=== PATIENT | female | born 1950 | race Caucasian/White ===

== ENCOUNTER 2017-02-02 08:08 | Inpatient (IN) | payer OTHER ==
[~2017-02-02] VITALS: Ht 154.9 cm; Wt 66.4 kg
[2017-02-02] VITALS (16 sets, daily range): BP systolic 108–142; BP diastolic 46–72
--- NOTE | ~2017-02-02 | HC ---
[facility] [place] [address] CONSULTATION Name: SATHISH LIMA Room #: 203-P [facility] IN M.R.#: [id number] Admission: 02/02/17 Attend Phys: Kristen Granado Discharge: 02/04/17 Date of : 46 Report #: [id number] THIS REPORT FOR: //name// CC: FAM unknown Kristen Granado DATE OF SERVICE: 02/02/2017 HISTORY OF PRESENT ILLNESS: This is a 66-year-old female patient who is difficult to evaluate. The patient's scjqxhwy-cw-luc is here and she indicates that this patient works and she worked yesterday. This morning she tried to call his son and could not express herself and they brought her here. The only thing she says is I have headache. She said, she had another headache about 4-5 years ago, but she usually does not get migraine headache. She has a seizure disorder. She does not know how long it is going on. She has seen a neurologist. She does not know who the neurologist is. Sbyvieuj-iv-paz also does not know that. Her seizures are not very frequent and in fact she has not had one for long time. It does not look like she has any prior history of glaucoma. This patient gives a history that the last seizure was about 6-7 years ago. She had an episode at that time where her Dilantin level was low, but she does not know what hospital she was in. REVIEW OF SYSTEMS: Indicate that she is on antidepressants, but apparently depression is not a very big problem, she has not had any. Review of systems as described above. PAST MEDICAL HISTORY: Negative for any early age stroke. PAST MEDICAL HISTORY: Seizure. FAMILY HISTORY: Negative for early age stroke. SOCIAL HISTORY: Iazjzfib-fl-fhy says she does not drink any alcohol or smoke. PHYSICAL EXAMINATION: The patient's examinations indicate she is very drowsy when I wake her up. She keeps saying just a few words that her head hurts. She does not say anything else and according to the nurses this is all she has done. She does not follow simple commands to carry out any examination. I do not think there is any meningeal sign in this patient. She is not markedly obtunded. I cannot tell where the pain is. The exam I can carry out her blood pressure is 138/62, respiration is 23, pulse is 77. Her Dilantin level is virtually nonexistent at 2.5. IMPRESSION: Very confusing history. This patient needs urgent workup to determine the etiology of the patient's symptom. We need an MRI of the brain [address] [address] CONSULTATION Name: SATHISH LIMA Room #: 203-P [facility] IN M.R.#: [id number] Admission: 02/02/17 Attend Phys: Kristen Granado Discharge: 02/04/17 Date of : 46 Report #: [id number] and MRA of the brain and MRV to see if there is any etiology there. That is already ordered as stat. We will get an EEG done to see if there is any evidence for nonconvulsive status, but the history is not typical for that. It does not look like it is subarachnoid hemorrhage, but I cannot fully exclude that either. RECOMMENDATIONS: I had multiple discussions with the Emergency Room physician and I talked to the patient's nddnaufm-yq-xnd and the patient the best I can. I do not think the patient understands things. The plan is to get a stat MRI and MRA done and an EEG done. If it is negative, then proceed with the spinal tap. This patient woke up with this symptom around 7:00, the best we can tell. Therefore, she is not a candidate for any intervention if this is stroke. I do not believe, it is glaucoma and I do not see any changes for that, but if the other workup is negative Ophthalmology need to be considered. We will also like to get a sed rate in this patient some time. More than 50 minutes of cyyk-tw-hpus time was spent taking care of this patient today and majority of that time was spent counseling this patient's family and coordinating her care. Thank you very much for this referral. <ELECTRONICALLY SIGNED> By: Austin Westbrook MD 02/07/17 0943 1131 0048 Austin Westbrook MD /nt
--- NOTE | ~2017-02-02 | EKG ---
[address] [place] [address] ELECTROCARDIOGRAM REPORT Name: KELLI LIMAINN Room #: 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
--- NOTE | ~2017-02-02 | EEG ---
[facility] [place] [address] [place] [address] ELECTROENCEPHALOGRAM Name: SATHISH LIMA Room #: 203-P [facility] IN M.R.#: [id number] Admission: 02/02/17 Attend Phys: Kristen Givens Discharge: 02/04/17 Date of : 46 Report #: [id number] THIS REPORT FOR: //name// CC: FAM unknown Kristen Granado DATE OF SERVICE: 02/04/2017 The patient's EEG was done for comparing with the last EEG. EEG was done by placing the electrodes by standard 10/20 system of electrode placement. Both referential and sequential montages were used for recording. Background activity in this patient's EEG is about 9 Hz and 30 microvolt. It is a symmetrical activity. Photic stimulation is unremarkable. The patient appeared to be drowsy and that is associated with bilateral slowing and vertex sharp waves. Throughout the record, no active epileptiform activity was noticed. IMPRESSION: Left-sided slowing noticed in the last EEG appeared to have resolved and the EEG appeared unremarkable. Thank you very much for this referral. <ELECTRONICALLY SIGNED> By: Austin Westbrook MD 02/07/17 0944 1019 1108 Austin Westbrook MD /nt
--- NOTE | ~2017-02-02 | EEG ---
[facility] [place] [place] [address] ELECTROENCEPHALOGRAM Name: SATHISH LIMA Room #: 203-P [facility] IN M.R.#: [id number] Admission: 02/02/17 Attend Phys: Kristen Givens Discharge: 02/04/17 Date of : 46 Report #: [id number] THIS REPORT FOR: //name// CC: FAM unknown Kristen Granado DATE OF SERVICE: 02/02/2017 This patient is being evaluated for speech difficulty. EEG was done by placing the electrodes by standard 10/20 system of electrode placement. Both referential and sequential montages were used for recording. Background activity on the right side appeared to be about 9-10 Hz and 30 microvolt. It is severely suppressed on the left side. On the left side, I do not see any epileptiform activity, but it is markedly suppressed. Photic stimulation was unremarkable. IMPRESSION: This is an abnormal EEG because it is markedly suppressed on the left side. I got further history from the son. He indicated that this patient had seizure virtually all her adult life. Her seizures are infrequent. She also has infrequent headaches. The last time she was here with similar symptoms, they gave her Dilantin IV, and she became better. Her Dilantin level is low, but she thinks she was taking her seizure medications appropriately. She usually sees Dr. Nicholson, who is a neurologist at [facility]. She saw him recently, and the son does not know what the Dilantin level was, but he was not told anything, and he assumed it was therapeutic. I had a long talk with this patient. This patient has severely suppressed EEG on the left side and the MRI is normal. I do not see any subarachnoid hemorrhage or an aneurysm. She is running low grade temperature at 99.6, and her troponin level is borderline. I discussed with the patient and the son that I cannot rule out an infection or even a subarachnoid hemorrhage in this patient fully. The way to do that is by doing a spinal tap. She is according to the son and spinal tap does carry some risk including paralysis. He initially wanted to do only Dilantin and see how she does, but subsequently wanted to proceed with the spinal tap. I discussed indication, potential complication and alternatives of spinal tap with the son in front of the patient and that does include paralysis of the lower extremities, which can be permanent. They understood all those, and they want to proceed with spinal tap. We will try to give the patient Dilantin and try to arrange the spinal tap. I discussed all the options with the family in great detail in this regard. [address] [address] ELECTROENCEPHALOGRAM Name: SATHISH LIMA Room #: 203-P [facility] IN M.R.#: [id number] Admission: 02/02/17 Attend Phys: Kristen Givens Discharge: 02/04/17 Date of : 46 Report #: [id number] Thank you very much for this referral, and we will continue to follow this patient with you. <ELECTRONICALLY SIGNED> By: Austin Westbrook MD 02/07/17 0944 1450 1512 Austin Westbrook MD /nt
[~2017-02-02 08:08] MED LIST: ADVAIRDISKUS; ALPRAZOLAM2 MG PO; AMBIEN 10 MG TA10 MG PO; CARAFATE1 GM/10 ML PO; DILANTIN50 MG; FOSAMAX 70 MG T70 M1 PO; LISINOPRIL10 MG PO; MUCINEX600 MG; NORTRIPTYLINE H50 M3 PO; OMEPRAZOLE20 M2 PO; PAROXETINE HCL20 MG PO; PREDNISONE 10 M10 MG PO; VICODIN 5-5001 EACH PO
[2017-02-02] MEDS ORDERED: PAXIL10 MG PO (08:19)
[2017-02-02] MEDS ORDERED: TRAZODONE HCL50 MG PO (08:19)
[2017-02-02] MEDS ORDERED: LEVAQUIN 250 M250 MG PO (08:20)
[2017-02-02] MEDS ORDERED: VIMPAT100 MG PO (08:20)
[2017-02-02 08:46] LABS: ABSOLUTE NEUTROPHILS 7.4 thou/uL (1.4-8.2); BASOPHILS 0.3 % (0.0-2.0); EOSINOPHILS 2.3 % (0.0-3.0); LYMPHOCYTES 18.1 % (24.0-44.0); MANUAL DIFF NO; MCH 30.5 pg (26.0-34.0); MCHC 34.3 g/dL (28.0-37.0); MONOCYTES 10.6 % (1.0-8.0); PLATELET COUNT 260 thou/uL (150-400); POLYS 68.7 % (36.0-66.0); RBC 4.61 mil/uL (4.20-5.00); RDW 13.2 % (10.5-14.5); WBC 10.8 thou/uL (4.0-11.0)
[2017-02-02 08:50] LABS: CALCIUM 8.8 mg/dL (8.5-10.1); CREATININE 0.9 mg/dL (0.6-1.0); POTASSIUM 3.6 mmol/L (3.5-5.1)
[2017-02-02 08:58] LABS: DILANTIN 2.5 ug/mL (10.0-20.0); TROPONIN-I 0.06 ng/mL (<0.06)
[2017-02-02 09:08] LABS: URINE BILIRUBIN NEGATIVE (Negative); URINE BLOOD NEGATIVE (Negative); URINE COLOR YELLOW; URINE GLUCOSE-RANDOM* NEGATIVE (Negative); URINE KETONES NEGATIVE (Negative); URINE LEUKOCYTES-REFLEX NEGATIVE (Negative); URINE PROTEIN (DIPSTICK) TRACE (Negative); URINE UROBILINOGEN 0.2 E.U./dl (0.2-1.0)
[2017-02-02 09:21] LABS: AMP/METHAMP Negative (Negative); BARBITURATES Negative (Negative); BENZODIAZEPINES POSITIVE (Negative); COCAINE Negative (Negative); METHADONE Negative (Negative); OPIATES Negative (Negative); PCP Negative (Negative)
[2017-02-02 10:10] LABS: APTT 29.9 Seconds (24.5-32.8); PROTIME 9.9 Seconds (9.3-11.4)
[2017-02-02] MEDS ORDERED: MUCINEX600 MG PO (10:19)
[2017-02-02] MEDS ORDERED: CLARITIN10 MG PO (10:19)
[2017-02-02] MEDS ORDERED: UNICOMPLEX M TA1 TA1 PO (10:19)
[2017-02-02 14:59] LABS: ALBUMIN 3.8 g/dL (3.4-5.0); CALCIUM 8.8 mg/dL (8.5-10.1); CREATININE 0.9 mg/dL (0.6-1.0); POTASSIUM 3.7 mmol/L (3.5-5.1); TOTAL BILIRUBIN 0.6 mg/dL (<0.1-1.0); TOTAL PROTEIN 6.5 g/dL (6.4-8.2)
[2017-02-02 17:12] LABS: NUMBER OF TUBES 4
[2017-02-02 17:13] LABS: CSF CLARITY CLEAR; CSF COLOR COLORLESS; VOLUME 8.5 ml
[2017-02-02 17:17] LABS: CSF GLUCOSE 59 mg/dL (40-70); CSF PROTEIN 63 mg/dL (15-45)
[2017-02-02 17:43] LABS: CSF WBC 8 /mm3 (0-10); MANUAL DIFF NO
[2017-02-02] MEDS ORDERED: LEVAQUIN 500 M500 M2 PO (18:00)
[2017-02-02] MEDS ORDERED: SINGULAIR 10 MG10 M1 PO (18:01)
[2017-02-02] MEDS ORDERED: FOSAMAX 70 MG T70 MG PO (18:02)
[2017-02-02] MEDS ORDERED: ASMANEX110 MC1 IH (18:03)
[2017-02-02] MEDS ORDERED: BREO ELLIPTA 11 EACH (18:03)
[2017-02-02] MEDS ORDERED: VIMPAT150 MG PO (18:52)
[2017-02-03 03:35] VITALS: BP 137/64
[2017-02-03 04:44] LABS: ALBUMIN 3.1 g/dL (3.4-5.0); CALCIUM 8.3 mg/dL (8.5-10.1); CREATININE 0.9 mg/dL (0.6-1.0); POTASSIUM 4.1 mmol/L (3.5-5.1); TOTAL BILIRUBIN 0.7 mg/dL (<0.1-1.0); TOTAL PROTEIN 5.9 g/dL (6.4-8.2)
[2017-02-03 05:12] LABS: TSH 0.665 uIU/mL (0.358-3.740)
[2017-02-03 11:42] VITALS: BP 147/67
[2017-02-03 15:09] VITALS: BP 127/69
[2017-02-03] MEDS ORDERED: PROMETHAZINE/C118 ML PO (18:23)
[2017-02-03] MEDS ORDERED: MAGOX 400400 MG PO (18:25)
[2017-02-03] MEDS ORDERED: TRAZODONE HCL50 MG PO (18:25)
[2017-02-03] MEDS ORDERED: TYLENOL325 MG PO (18:26)
[2017-02-03] MEDS ORDERED: POTASSIUM GLUCONATE (18:28)
[2017-02-03] MEDS ORDERED: CALCIUM 600 +1 EAC1 PO (18:29)
[2017-02-03 19:37] VITALS: BP 129/59
[2017-02-04 05:24] VITALS: BP 122/71
[2017-02-04 07:15] VITALS: BP 136/71
[2017-02-04] MEDS ORDERED: KEFLEX500 M1 PO (09:49)
[2017-02-04 11:02] VITALS: BP 140/72
[2017-02-04 15:06] VITALS: BP 140/72
== END 2017-02-04 18:08 | disposition home health service (06) | DRG 100 ==
LOC: ER 08:08 → EROBS 10:23 → 2N 10:23
PROVIDERS: Emergency Medicine; Psychiatry & Neurology Neuromuscular Medicine
PROC: 009U3ZX Drainage of Spinal Canal, Percutaneous Approach, Diagnostic (ICD-10-PCS; principal; 2017-02-02)
PROC: B01B1ZZ Fluoroscopy of Spinal Cord using Low Osmolar Contrast (ICD-10-PCS; principal; 2017-02-02)
DX: G40.909 Epilepsy, unspecified, not intractable, without status epilepticus (principal); G93.40 Encephalopathy, unspecified; G43.409 Hemiplegic migraine, not intractable, without status migrainosus; I10 Essential (primary) hypertension; J45.909 Unspecified asthma, uncomplicated; J32.0 Chronic maxillary sinusitis; Z60.2 Problems related to living alone; Z88.6 Allergy status to analgesic agent; Z88.0 Allergy status to penicillin; Z88.8 Allergy status to other drugs, medicaments and biological substances; Z79.899 Other long term (current) drug therapy
CPT/HCPCS: 10081

== ENCOUNTER 2018-08-08 18:03 | Emergency (ER) | payer OTHER ==
[~2018-08-08] VITALS: Ht 157.5 cm; Wt 70.3 kg
[~2018-08-08 18:03] MED LIST changes: +ASMANEX110 MC1 IH; +BREO ELLIPTA 11 EACH; +CALCIUM 600 +1 EAC1 PO; +CLARITIN10 MG PO; +FOSAMAX 70 MG T70 MG PO; +KEFLEX500 M1 PO; +LEVAQUIN 250 M250 MG PO; +LEVAQUIN 500 M500 M2 PO; +MAGOX 400400 MG PO; +MUCINEX600 MG PO; +PAXIL10 MG PO; +POTASSIUM GLUCONATE; +PROMETHAZINE/C118 ML PO; +SINGULAIR 10 MG10 M1 PO; +TRAZODONE HCL50 MG PO; +TYLENOL325 MG PO; +UNICOMPLEX M TA1 TA1 PO; +VIMPAT100 MG PO; +VIMPAT150 MG PO
[2018-08-08 18:55] LABS: ABSOLUTE NEUTROPHILS 5.3 thou/uL (1.4-8.2); BASOPHILS 0.7 % (0.0-2.0); EOSINOPHILS 4.1 % (0.0-3.0); HEMATOCRIT 39.1 % (37.0-47.0); HEMOGLOBIN 13.1 gm/dL (12.0-15.0); LYMPHOCYTES 23.2 % (24.0-44.0); MCH 30.7 pg (26.0-34.0); MCHC 33.6 g/dL (28.0-37.0); MCV 91.3 fL (80.0-100.0); MONOCYTES 8.1 % (1.0-8.0); PLATELET COUNT 266 thou/uL (150-400); POLYS 63.9 % (36.0-66.0); RBC 4.28 mil/uL (4.20-5.00); RDW 13.7 % (10.5-14.5); WBC 8.2 thou/uL (4.0-11.0)
[2018-08-08 18:58] LABS: CALCIUM 8.6 mg/dL (8.5-10.1); CREATININE 1.1 mg/dL (0.6-1.0)
[2018-08-08 19:05] LABS: ALBUMIN 3.4 g/dL (3.4-5.0); MAGNESIUM 2.1 mg/dL (1.8-2.4); TOTAL BILIRUBIN 0.3 mg/dL (<0.1-1.0); TOTAL PROTEIN 6.4 g/dL (6.4-8.2)
[2018-08-08 19:46] LABS: AMP/METHAMP Negative (Negative); BARBITURATES Negative (Negative); BENZODIAZEPINES Negative (Negative); COCAINE Negative (Negative); METHADONE Negative (Negative); OPIATES Negative (Negative); PCP Negative (Negative)
[2018-08-08 21:19] VITALS: BP 141/58
== END 2018-08-08 21:20 | disposition home or self-care (01) ==
LOC: ER 18:03
PROVIDERS: Emergency Medicine
DX: G40.909 Epilepsy, unspecified, not intractable, without status epilepticus (principal); R51 Headache; I10 Essential (primary) hypertension; J45.909 Unspecified asthma, uncomplicated; Z88.0 Allergy status to penicillin; Z88.8 Allergy status to other drugs, medicaments and biological substances

== ENCOUNTER 2018-08-18 08:21 | Inpatient (IN) | payer OTHER ==
[~2018-08-18] VITALS: Ht 144.8 cm; Wt 64.9 kg
--- NOTE | ~2018-08-18 | H ---
[facility] [place] [address] HISTORY AND PHYSICAL Name: SATHISH LIMA Room #: REG BRIAN Jaeger#: [id number] Admission: 08/18/18 ������������������ Attend Phys: Discharge: ������������������ Date of : 46 Report #: [id number] THIS REPORT FOR: //name// CC: Hi Sanz DATE OF SERVICE: 08/18/2018 REASON FOR PRESENTATION: Abdominal pain. HISTORY OF PRESENT ILLNESS: A 67-year-old with past medical history of seizure disorder, asthma and hypertension, recurrent bowel obstruction. She presented with abdominal pain that started last night. This was associated with diffuse nausea and vomiting. She denies any fever or chills. She was doing just fine up until the last night when she started to have those symptoms. She could not tolerate the pain and she presented for further evaluation and management. She has had previous history of endometriosis and adhesions. She has not been able to take her medications because of the above-mentioned symptoms. She presented for further evaluation and management. CT of the abdomen was consistent with small-bowel obstruction for which the patient will be admitted. She denies diarrhea. There are no urinary symptoms in the form of fever, chills, urgency, hesitancy. The pain was localized in the upper abdominal area. No radiation. The pain had been progressing significantly. The patient was evaluated a few months ago for a seizure disorder. She is known to have chronic seizure disorders and had been evaluated by the Neurology in the past. PAST MEDICAL HISTORY: 1. Seizure disorder. 2. Asthma. 3. Hypertension. 4. Osteoporosis. ALLERGIES: PENICILLIN, ASPIRIN, OMEPRAZOLE. MEDICATIONS: 1. Lisinopril. 2. Breo. 3. Phenytoin. 4. Alprazolam. 5. Trazodone. 6. Vimpat. REVIEW OF SYSTEMS: GENERAL: Significant for weakness. CARDIOVASCULAR: No chest pain or palpitation. PULMONARY: No cough or hemoptysis. [facility] [address] [place] [address] HISTORY AND PHYSICAL Name: SATHISH LIMA Room #: REG [facility].#: [id number] Admission: 08/18/18 ������������������ Attend Phys: Discharge: ������������������ Date of : 46 Report #: [id number] GASTROINTESTINAL: As per history of present illness. GENITOURINARY: No frequency, no urgency. MUSCULOSKELETAL: No back pain, no chest pain. SKIN: No rashes or ulcerations. NEUROLOGICAL: No recent seizure activities. FAMILY HISTORY: Significant for diabetes mellitus and hypertension. SOCIAL HISTORY: She denies drug or alcohol abuse. PHYSICAL EXAMINATION: GENERAL: She is alert, oriented, in distress. VITAL SIGNS: Pulse rate is 93, temperature 36.9, blood pressure is 102/70. HEAD AND NECK: No jugular venous distention. CHEST: Decreased air entry bilaterally. CARDIOVASCULAR: No rub detected. ABDOMEN: Diffuse tenderness with hypoactive bowel sounds. LOWER EXTREMITIES: No edema. NEUROLOGICAL: No gross deficit. SKIN: No rashes or ulcerations. LABORATORY VALUES: Reviewed. White blood cell count is 10.4. Chemistry from today revealed a sodium of 135. BUN is 13, creatinine is 0.9. CT of the abdomen revealed a small-bowel obstruction. ASSESSMENT, IMPRESSION AND PLAN: 1. Small bowel obstruction. 2. Seizure disorder. 3. Hypertension. 4. Admission. 5. NPO status. 6. Surgical consultation. 7. NG tube. 8. Switch all of her medications to an intravenous route. 9. Further plans will be implemented after surgical evaluation. ��������������������������������������������� ���������������������������������������� By: ��������������������������������������������� 1526 1545 Yandel Carbone MD /nt
[2018-08-18 08:22] VITALS: BP 102/70
--- NOTE | 2018-08-18 09:34 | NUR ---
DR GUIDRY BEDSIDE FOR EXAM
[2018-08-18 09:46] LABS: ABSOLUTE NEUTROPHILS 7.6 thou/uL (1.4-8.2); BASOPHILS 0.6 % (0.0-2.0); EOSINOPHILS 2.8 % (0.0-3.0); HEMATOCRIT 43.6 % (37.0-47.0); HEMOGLOBIN 14.9 gm/dL (12.0-15.0); LYMPHOCYTES 14.3 % (24.0-44.0); MCH 30.6 pg (26.0-34.0); MCHC 34.2 g/dL (28.0-37.0); MCV 89.6 fL (80.0-100.0); MONOCYTES 9.2 % (1.0-8.0); PLATELET COUNT 305 thou/uL (150-400); POLYS 73.1 % (36.0-66.0); RBC 4.86 mil/uL (4.20-5.00); RDW 13.4 % (10.5-14.5); WBC 10.4 thou/uL (4.0-11.0)
[2018-08-18 09:50] LABS: CALCIUM 9.3 mg/dL (8.5-10.1); CREATININE 0.9 mg/dL (0.6-1.0); POTASSIUM 3.6 mmol/L (3.5-5.1)
[2018-08-18 09:56] LABS: ALBUMIN 3.8 g/dL (3.4-5.0); DIRECT BILIRUBIN 0.1 mg/dL (<0.1-0.3); TOTAL BILIRUBIN 0.6 mg/dL (<0.1-1.0); TOTAL PROTEIN 6.8 g/dL (6.4-8.2)
--- NOTE | 2018-08-18 11:46 | NUR ---
PT. PROVIDED PAIN MED. FOR C/O ABDOMINAL PAIN. WILL REASSESS FOR COMFORT.
--- NOTE | 2018-08-18 14:15 | NUR ---
PT. RETURNS FROM [facility] AFTER CT SCAN. PT. WITH NAUSEA. DR. GUIDRY MADE AWARE
[2018-08-18] MEDS ORDERED: DILANTIN100 MG PO (15:40)
[2018-08-18] MEDS ORDERED: CENTRUM SILVER1 EAC4 PO (15:41)
[2018-08-18] MEDS ORDERED: LISINOPRIL10 MG PO (15:41)
[2018-08-18] MEDS ORDERED: PREDNISONE 10 M10 MG PO (15:41)
[2018-08-18 17:54] VITALS: BP 112/52
[2018-08-18 20:30] VITALS: BP 114/65
[2018-08-19 00:10] VITALS: BP 121/61
[2018-08-19 01:56] LABS: URINE BILIRUBIN NEGATIVE (Negative); URINE BLOOD NEGATIVE (Negative); URINE CLARITY CLEAR; URINE COLOR YELLOW; URINE GLUCOSE-RANDOM* NEGATIVE (Negative); URINE KETONES NEGATIVE (Negative); URINE LEUKOCYTES-REFLEX NEGATIVE (Negative); URINE NITRITE-REFLEX NEGATIVE (Negative); URINE PROTEIN (DIPSTICK) NEGATIVE (Negative); URINE SPECIFIC GRAVITY <= 1.005 (1.005-1.035); URINE UROBILINOGEN 0.2 E.U./dl (0.2-1.0)
--- NOTE | 2018-08-19 03:20 | NUR ---
ASSUMED PT CARE AROUND 1900. A&OX4. PT SLEPT OFF AND ON DURING FIRST HALF OF SHIFT. C/O ABDOMNINAL PAIN AND INTERMITTENT NAUSEA; MORPHINE AND ZOFRAN GIVEN INDICATED. PT OBSERVED TO VOMIT TWICE SO FAR THIS SHIFT. NOTIFIED DR YANG (GENERAL SURGERY) OF NEW PT CONSULT AND PT STATUS. PT SITTING UP IN CHAIR AT THIS TIME. PT STATES SHE FEELS LIKE SHE NEEDS TO HAVE A BOWEL MOVEMENT. NOT PROGRESSING WELL TOWARD POC GOALS. WILL CONTINUE TO MONITOR FURTHER.
--- NOTE | 2018-08-19 04:11 | NUR ---
PT HAD MODERATE SIZED, LOOSE BOWEL MOVEMENT THIS MORNING. PT STATED AFTER BM, HER PAIN REDUCED TO 5/10. PT STILL SITTING IN CHAIR AT THIS TIME. WILL CONTINUE TO MONITOR FURTHER.
[2018-08-19 05:10] VITALS: BP 119/66
[2018-08-19 07:50] VITALS: BP 82/49
[2018-08-19 16:14] VITALS: BP 90/49
[2018-08-19 17:17] LABS: HEMATOCRIT 41.3 % (37.0-47.0); HEMOGLOBIN 13.8 gm/dL (12.0-15.0); MCH 30.6 pg (26.0-34.0); MCHC 33.3 g/dL (28.0-37.0); MCV 91.6 fL (80.0-100.0); RBC 4.51 mil/uL (4.20-5.00); WBC 20.2 thou/uL (4.0-11.0)
[2018-08-19 17:32] LABS: CALCIUM 8.3 mg/dL (8.5-10.1); MAGNESIUM 2.4 mg/dL (1.8-2.4); POTASSIUM 4.5 mmol/L (3.5-5.1)
[2018-08-19 17:44] LABS: CREATININE 2.2 mg/dL (0.6-1.0)
[2018-08-19 19:32] VITALS: BP 90/50
--- NOTE | 2018-08-19 20:22 | NUR ---
PATIENT ALERT AND ORIENTED BUT SLEEPY INDICATING SHE DIDN'T SLEEP MUCH LAST NIGHT. SUSCPECTED BLOODY STOOLS DURING THE DAY AND OCCULT STOOL WAS POSITIVE. NOTIFIED DR. CORTES OF LOW BP'S AND ELEVATED TEMPERATURE AND ABNORMAL LAB VALUES. DR. CORTES ORDERED LABS AND FLUIDS, CXR. PATIENT FRIEND, VAIBHAV MOSCOSO AT BEDSIDE THROUGHOUT THE DAY AND INDICATED SHE PREVIOUSLY WORKED WITH PATIENT AND SOMETIMES ASSISTS HER WITH CARE. VAIBHAV WAS WITH PATIENT ON AUGUST 08 WHEN PATIENT HAD SEIZURE AND CAME TO [facility] ED. VAIBHAV INDICATED PATIENT STILL WORKS AND LIVES BY HERSELF. VAIBHAV INDICATED SON, JANEL (ESTEFANY) WORK DURING THE DAY AND WILL CALL AT NIGHT. JANEL LIMA CAN BE REACH IN EMERGENCY DURING THE DAY AT [phone] AND ASK FOR EITHER SAURAV OR TESHA. VAIBHAV MOSCOSO CAN BE REACHED AT [phone].
[2018-08-19 23:06] VITALS: BP 88/51
[2018-08-20] VITALS (7 sets, daily range): BP systolic 80–127; BP diastolic 41–92
--- NOTE | 2018-08-20 01:26 | NUR ---
UPON INITIAL ASSESSMENT, PT NOTED TO BE CONFUSED, LETHARGIC, REPEATING PHRASES WHEN ASKED QUESTIONS. DENIED ANY PAIN OR N/V. PT WAS ABLE TO FOLLOW COMMANDS. JUVENAL. FRIEND AT BEDSIDE. PT'S FRIEND STATED PT WAS ACTING SIMILAR TO HOW SHE WAS AFTER HER SEIZURE A WEEK AGO. THIS RN PAGED TITLE PROCESSOR ISOTOPE TECHNOLOGIST FOR HOSPITALIST. UPDATED TITLE PROCESSOR ON PT'S RECENT LABS AND MENTAL STATUS. ORDERS RECEIVED AND IMPLEMENTED. PT HAD 3 VERY SMALL MUCOUS BOWEL MOVEMENTS WITH RED DRAINAGE. TITLE PROCESSOR AWARE. AFTER PT'S FRIEND LEFT, PT WAS RESTLESS AND IMPULSIVE, TRYING TO GET OUT OF BED. PT WAS UNABLE TO VOID. BLADDER SCANNED >417ML. NOTITIFED TITLE PROCESSOR. STRAIGHT CATHED X1 PER ORDER. PT C/O 10/10 ABDOMINAL PAIN AROUND 2300. PT WAS RUBBING HER ABDOMEN BUT DENIED ANY N/V. ABDOMEN SOFT AND TENDER. BOWEL SOUNDS ACTIVE. NOTIFIED TITLE PROCESSOR. ORDERS RECEIVED. BP DROPPING AND SEPSIS SCREEN POSITIVE. UPDATED JENNIFER BERMUDEZ NP. ORDER RECEIVED TO GIVE 500ML NS BOLUS. PT IS STILL CONFUSED AT THIS TIME BUT MORE ALERT THAN EARLIER AND ABLE TO ANSWER SOME ORIENTATION QUESTIONS. WILL CONTINUE TO MONITOR CLOSELY AND UPDATE TITLE PROCESSOR.
--- NOTE | 2018-08-20 03:52 | NUR ---
PT BP STILL LOW AFTER 500 ML NS BOLUS. NOTIFIED ARPAN RODRIGUEZ. ORDER RECEIVED FOR ANOTHER 500ML NS BOLUS. PT IS MORE ORIENTED THIS MORNING. SHE IS NOW ORIENTED TO LOCATION, TIME, AND MOST OF HER SITUATION. STILL C/O ABDOMINAL PAIN BUT DENIES N/V. NOT PROGRESSING WELL TOWARD POC GOALS. WILL CONTINUE TO MONITOR CLOSELY.
[2018-08-20 04:06] LABS: HEMATOCRIT 32.9 % (37.0-47.0); MCH 30.6 pg (26.0-34.0); MCHC 33.2 g/dL (28.0-37.0); MCV 92.2 fL (80.0-100.0); RBC 3.57 mil/uL (4.20-5.00); RDW 13.7 % (10.5-14.5); WBC 15.5 thou/uL (4.0-11.0)
[2018-08-20 04:07] LABS: HEMOGLOBIN 10.9 gm/dL (12.0-15.0)
[2018-08-20 04:20] LABS: CALCIUM 7.2 mg/dL (8.5-10.1); CREATININE 2.2 mg/dL (0.6-1.0); POTASSIUM 4.6 mmol/L (3.5-5.1)
--- NOTE | 2018-08-20 07:18 | NUR ---
BP IMPROVED AFTER LAST NS BOLUS. PT STILL CONFUSED AT TIMES BUT MORE ALERT AND ABLE TO ANSWER MORE ORIENTATION QUESTIONS. UPDATED STRUCTURAL ENGINEERING DRAFTING OFFICER GEAR MACHINIST FOR HOSPITALIST.
--- NOTE | 2018-08-20 12:45 | NUR ---
ASSESSMENT: CM REVIEWED CHART AND MET WITH PATIENT AT THE BEDSIDE. PT WAS ADMITTED WITH PARTIAL SBO AND SHOWING SYMPTOMS OF COLITIS. ADVANCING PATIENTS DIET SLOWLY. PT REPORTS SHE LIVES ALONE IN AN APT AND STILL WORKS. PT REPORTS SHE IS FULLY INDEPENDENT WITH ADLS AND AMBULATION. PT DENIES HAVING ANY DME OR THE NEED FOR IT. PT HAS HX OF SEIZURES AND CM REMINDED PATIENT SHE IS NOT TO DRIVE FOR SIX MONTHS. PT STATED SHE IS AWARE OF THIS AND THAT SHE HAS FRIENDS/COWORKERS THAT HELP DRIVE HER TO AND FROM WORK AND FOR ERRANDS. CM DISCUSSED ROLE. PT DOES NOT ANTICIPATE HAVING ANY NEEDS AT DISCHARGE.
--- NOTE | 2018-08-20 18:20 | NUR ---
ASSUMED CARE @ 0700 08/20/18, PT AXO X3, PT IS FORGETFUL, ABLE TO FOLLOW ALL COMMANDS AND CAN MOVE ALL EXTREMITIES, GIVEN NORCO DURING THIS SHIFT. PT ON 2L OF SOUNDS MORE DIMINISHED ON THE RIGHT SIDE. PT ON A CLEAR LIQUID DIET, PT ABLE TO TOLERATE WELL. LOVE PLACE IN PER DR CORTES'S ORDER. PREDNISONE RESTARTED. PLAN OF CARE- CONT TO MONITOR.
[2018-08-21 03:20] VITALS: BP 98/54
--- NOTE | 2018-08-21 04:54 | NUR ---
PT HAD NO BM BY 2300, PT OFF WINDOW TIME FRAME FOR C-DIFF, ISO REMOVED. NO BLEEDING NOTED, ABD PAIN RELIEVED BY NORCO 5/300 EVERY 4 HRS, NO NAUSEA NOTED, LOVE CATH PATENT, TOLERATED CLEAR LIQUID DIET ( JELLO AND BROTH) GIVEN LAST NOC, SCDS TO BLE, USING CALL LIGHT APPROPRIATELY, MONITORED. ON SEIZURE PRECAUTION, RECEIVING PHYNETOIN IV, BED PADDED, MONITORED.
[2018-08-21 05:52] LABS: ABSOLUTE NEUTROPHILS 10.8 thou/uL (1.4-8.2); BASOPHILS 0.3 % (0.0-2.0); EOSINOPHILS 0.8 % (0.0-3.0); HEMATOCRIT 32.7 % (37.0-47.0); HEMOGLOBIN 10.9 gm/dL (12.0-15.0); LYMPHOCYTES 7.2 % (24.0-44.0); MCHC 33.4 g/dL (28.0-37.0); MCV 92.8 fL (80.0-100.0); MONOCYTES 6.2 % (1.0-8.0); PLATELET COUNT 204 thou/uL (150-400); POLYS 85.5 % (36.0-66.0); RBC 3.52 mil/uL (4.20-5.00); RDW 14.2 % (10.5-14.5); WBC 12.6 thou/uL (4.0-11.0)
[2018-08-21 06:11] LABS: ALBUMIN 2.3 g/dL (3.4-5.0); CALCIUM 7.7 mg/dL (8.5-10.1); MAGNESIUM 2.1 mg/dL (1.8-2.4); POTASSIUM 4.8 mmol/L (3.5-5.1); TOTAL BILIRUBIN 0.5 mg/dL (<0.1-1.0); TOTAL PROTEIN 5.5 g/dL (6.4-8.2)
[2018-08-21 06:14] LABS: CREATININE 1.2 mg/dL (0.6-1.0)
[2018-08-21 07:33] VITALS: BP 101/52
--- NOTE | 2018-08-21 12:08 | NUR ---
ON-GOING ASSESSMENT: PT REMAINS NAUSEATED AND NO PLANS FOR DISCHARGE AT THIS TIME. CM WILL CONTINUE TO FOLLOW TO ASSIST NEEDED.
[2018-08-21 16:44] VITALS: BP 129/55
[2018-08-21 19:52] VITALS: BP 137/61
--- NOTE | 2018-08-22 03:01 | NUR ---
SLEPT PART OF SHIFT. UP TO COMODE PRN FOR ASSISTANCE. HAD 1 MODERATE BOUGHT OF DIARRHEA AND AND SMALL AMOUNT. STATES ITS GETTING BETTER. WORKING ON GOALS AND PLAN OF CARE FOR NOC FOR NOC. DENIES COMPLAINTS OF NAUSEA THIS SHIFT. PROGRESSING SLOWLY TOWARDS DISCHARGE GOALS. COMPLAINTS OF PAIN RELIEVED WITH PAIN MEDICATION. CONTINUE TO ASSES CLOSELY.
[2018-08-22 04:03] VITALS: BP 116/63
[2018-08-22 07:17] VITALS: BP 133/65
[2018-08-22] MEDS ORDERED: PROTONIX40 M1 PO (13:54)
[2018-08-22] MEDS ORDERED: HYDROCODON-ACE1 EAC7 PO (13:54)
[2018-08-22] MEDS ORDERED: LEVAQUIN 500 M500 M2 PO (13:54)
[2018-08-22 14:50] VITALS: BP 133/65
--- NOTE | 2018-08-22 14:52 | NUR ---
on-going assessment: teto reviewed chart. patient has orders to discharge home with no needs. pt reports she plans on returning to work as soon as she can and does not want hh. cm notified attending that patient requesting a work release rx to turn into her work. bedside rn reports she has this to give patient. pt reports no further needs from teto.
--- NOTE | 2018-08-22 15:44 | NUR ---
PT DISCHARGED TO HOME WITH SELF CARE...TOLERATED REG DIET..VSS..DENIES PAIN...
== END 2018-08-22 15:45 | disposition home or self-care (01) | DRG 388 ==
LOC: ER 08:21 → 3W 15:52 → EROBS 15:52 → 3W 18:00 → ENTRNSPT 08-22 15:38 → EDTRNSPTSTS 08-22 15:40 → 3W 08-22 15:45
PROVIDERS: Emergency Medicine; Internal Medicine; Nurse Practitioner Acute Care; ADMIT Hospitalist
DX: K56.609 Unspecified intestinal obstruction, unspecified as to partial versus complete obstruction (principal); J18.9 Pneumonia, unspecified organism; N17.9 Acute kidney failure, unspecified; G40.909 Epilepsy, unspecified, not intractable, without status epilepticus; J45.909 Unspecified asthma, uncomplicated; I10 Essential (primary) hypertension; N80.9 Endometriosis, unspecified; M81.0 Age-related osteoporosis without current pathological fracture; F41.9 Anxiety disorder, unspecified; K56.7 Ileus, unspecified; D72.829 Elevated white blood cell count, unspecified; Z88.6 Allergy status to analgesic agent; Z88.0 Allergy status to penicillin; Z88.8 Allergy status to other drugs, medicaments and biological substances; Z90.49 Acquired absence of other specified parts of digestive tract
CPT/HCPCS: 10879